=== PATIENT | female | born 1945 | race Caucasian/White ===

== ENCOUNTER → 2020-02-19 13:40 | Outpatient (CLI) | payer MEDICARE, SELFPAY ==
--- NOTE | 2020-02-19 14:00 | DI.CT.S_ITS ---
PROCEDURE: CT KIDNEY URETER BLADDER (KUB) INDICATIONS: Hematuria, unspecified TECHNIQUE: Noncontrast 5 mm thick sections acquired from the diaphragms to the symphysis. 5 mm thick coronal and sagittal reformats were then performed. For radiation dose reduction, the following was used: automated exposure control, adjustment of mA and/or kV according to patient size. COMPARISON: None. FINDINGS: Image quality: Excellent. Lung bases: There is a 4 mm left lower lobe nodule with a more posterior 4 mm nodule identified on series 3 image 8. No priors are available for comparison. Urinary system: Both kidneys are normal in size. No kidney stones. No hydronephrosis or perinephric fat stranding. Both ureters appear non-dilated throughout their expected courses. Bladder wall thickness is normal; no calcified bladder stones. Other solid organs: Liver is normal in size. Gallbladder demonstrates multiple stones without wall thickening. Pancreas is normal in contours. Spleen is normal in size. No adrenal nodules. Peritoneum and bowel: Unenhanced bowel loops demonstrate normal wall thickness and caliber. No free fluid or air. Colonic diverticula are present without inflammatory change. Nodes and vessels: No retroperitoneal or mesenteric adenopathy by size criteria. Aorta and inferior vena cava are normal in caliber. Abdominal wall: No ventral hernias. Pelvis: No free pelvic fluid. No inguinal hernias or adenopathy. Bones: No suspicious bony lesions. No vertebral body compression fractures. IMPRESSION: 1. No nephro or ureterolithiasis. If concern persists for hematuria, CT IVP is recommended for further evaluation. 2. Innumerable gallstones without wall thickening consistent with cholelithiasis. 3. 4 mm left lower lobe nodules, nonspecific without priors for comparison. Recommend interval followup as below. Fleischner Society criteria for SOLID lung nodule followup. Nodule size (mm)Low-risk patientHigh-risk patient<6 (single or multiple)No routine followup.Optional CT at 12 months. 6-8 (single or multiple)CT at 6-12 months, then optional CT at 18-24 mo.CT at 6-12 months, then CT at 18-24 months. >8 (single)CT, PET-CT, or biopsy at 3 months. Same as for low-risk pts. >8 (multiple)CT at 3-6 months, then optional CT at 18-24 mo.CT at 3-6 months, then CT at 18-24 months. Recommendations do not apply to lung cancer screening, patients with immunosuppression, or patients with known primary cancer. Dictated by: Jailyn Villeda M.D. on 02/19/2020 at 16:41 Approved by: Jailyn Villeda M.D. on 02/19/2020 at 16:44
== END ==
PROVIDERS: Referring Provider Physician Assistant Medical; Visit Provider Physician Assistant Medical
DX: R31.9 Hematuria, unspecified (principal); R91.8 Other nonspecific abnormal finding of lung field; K80.20 Calculus of gallbladder without cholecystitis without obstruction; K57.90 Diverticulosis of intestine, part unspecified, without perforation or abscess without bleeding
CPT/HCPCS: 74176

== ENCOUNTER 2022-09-14 07:51 | Day surgery (SDC) | payer MEDICARE, SELFPAY ==
--- NOTE | 2022-09-14 | PATH_ITS ---
[facility] Accession Number: [id number] . 01 Material submitted: . PART A: colon - RANDOM COLON BIOPSIES PART B: colon - TRANSVERSE COLON POLYP . 01 Diagnosis: A. Random Colon, Biopsies: Colonic mucosa with no diagnostic abnormality. Negative for active, chronic, and microscopic colitis. Negative for dysplasia and malignancy. . B. Transverse Colon Polyp, Biopsy: Colonic mucosa with focal mucosal hyperplasia. Negative for dysplasia or malignancy. MRV 09/16/2022 1538 Local . 01 Electronically signed: . Holland Nash MD, PhD, Pathologist NPI- [id number] . 01 Gross description: . Part A: RANDOM COLON BIOPSIES: Received in formalin are 3 fragment(s) of mederos, soft tissue measuring 0.1 x 0.1 x 0.1 cm to 0.2 x 0.2 x 0.2 cm submitted entirely in 1 cassette(s) Part B: TRANSVERSE COLON POLYP: Received in formalin is 1 fragment(s) of mederos, soft tissue measuring 0.3 x 0.2 x 0.2 cm submitted entirely in 1 cassette(s) /MARIBELL 09/15/2022 0101 Local . 01 Pathologist provided ICD-10: R19.7, K63.5 . 01 CPT . 115151, 136694 Specimen Comment: A courtesy copy of this report has been sent to [phone] Performed at: 01 [facility] [address] [place] [address], [place], [place] [id number] MD Sabas Marcano MD Phone: [phone]
[2022-09-14] MEDS: LACTATED RINGERS 1,000 ML 42 ML IV (08:05)
[2022-09-14 08:21] VITALS: BP 133/86; PULSE 67; RESP 16; TEMP 36.3; O2SAT 98; BMI 28.1
[2022-09-14 08:37] LABS: COVID19 -Nasal RAPID Negative (Negative)
--- NOTE | 2022-09-14 09:01 | PM.HP.1 ---
History of Present Illness History of Present Illness Date Patient Seen: 09/14/22 Time Patient Seen: 09:01 Chief complaint: Colonoscopy Narrative: I reviewed the recent office note by Dr. Michel. No changes. Patient History Family & Social History Social History: household members significant other Tobacco & Substance use: Smoking Status Former smoker alcohol intake current alcohol intake frequency holiday/special occasion Substance Use Type marijuana Meds Home Medications and Allergies Home Medications Medication Instructions Recorded Confirmed Type amlodipine 2.5 mg tablet 2.5 mg PO DAILY 09/14/22 09/14/22 History ibuprofen 200 mg tablet 200 mg PO DAILY 09/14/22 09/14/22 History losartan 25 mg tablet 25 mg PO DAILY 09/14/22 09/14/22 History Allergies Allergy/AdvReac Type Severity Reaction Status Date / Time Sulfa (Sulfonamide AdvReac Mild Vomiting Verified 09/14/22 08:14 Antibiotics) Review of Systems Review of Systems ROS: Yes All systems reviewed with the patient and are negative except as otherwise documented Exam Vital Signs (past 8 hours): - 09/14/22 08:21 Temperature 97.3 F L Pulse Rate 67 Respiratory Rate 16 Blood Pressure 133/86 Pulse Oximetry 98 Oxygen Delivery Method Room Air Oxygen Delivery Method Room Air Const General: cooperative HENMT Head: normal to inspection Eyes General: appearance normal, both eyes and all related structures Neck Neck: normal visual inspection Chest Chest: normal inspection of the chest Resp Effort & Inspection: normal respiratory effort Cardio Rate: regular rate GI Inspection: normal to inspection Skin General: no rashes or lesions noted Neuro General: patient alert and patient awake Extrem General: normal to inspection and no pedal edema Psych Appearance: grossly normal Objective Labs Labs: Laboratory Results - last 24 hr 09/14/22 08:01 SARS-CoV-2 (PCR) Negative Assessment & Plan Assessment & Plan narrative: 76-year-old female with chronic diarrhea. She has a remote history of some form of colitis many years ago. Sounds like it may have been ischemic. Updated colonoscopy is pursued today. Time Spent With Patient Critical Care time: I spent a total of [] minutes of critical care time on this patient's care today; this time is exclusive of procedural time.
--- NOTE | 2022-09-14 09:03 | PM.PREOP ---
Pre-operative Note COVID-19 COVID-19 status: Negative Result date/Date tested (Pos, Neg/Pending): 09/14/22 Criteria for continued procedure: Possibility delay results in more complex future surgery or treatment Interval Note History & Physical reviewed/Exam performed by Physician: Yes Changes to H&P: No ASA Class (for procedural sedation): II
--- NOTE | 2022-09-14 09:37 | P.OP.COLON_ITS ---
Operative Date/Time/Diagnoses Date of procedure: 09/14/22 Time of procedure: 09:37 Pre-op diagnosis: Chronic diarrhea Post-op diagnosis: same Procedure & Clinicians Study performed: Colonoscopy with cold forceps polypectomy and biopsies Same procedure as scheduled: Yes Indications: Diarrhea Surgeon: Thomas Tyson Procedure Notes SCOAP/Timeout: Done Procedure in detail: After the risks and benefits were explained, written and verbal informed consent was obtained. The patient was brought into the procedure room and placed into the left lateral decubitus position. Please see nurse electrical accessories i assembler notes for sedation details. Digital rectal examination was accomplished. The scope was introduced into the patient and advanced under direct visualization to the cecum as identified by the appendiceal orifice and ileocecal valve. The scope was slowly withdrawn to carefully examine the mucosa for any defects or lesions. Comprehensive imaging was accomplished throughout the rectum including the dentate line. The colon was decompressed, the scope was then removed from the patient who tolerated the procedure well. Pediatric colonoscope Bowel prep adequate Scope withdrawal time: 13 minutes Sedation minutes: 28 Complications: none Impression: The patient had evidence of a prolapsed mildly inflamed internal hemorrhoid. This was palpable on ROSAS. This was rated at grade 3 as it was fairly easily reduced with the digital exam. The patient had a very tortuous colon. Diverticulosis was encountered in the sigmoid region. There was a diminutive 4- 5 mm polyp in the transverse removed with cold forceps. The ileocecal valve demonstrated evaginated ileal mucosa but was otherwise within normal limits. The terminal ileum was interrogated and appeared normal. I did not identify any evidence of macroscopic colitis. Random colon biopsies were taken for exclusion of microscopic colitis. Endoscopic diagnosis 1. Grade 3 internal hemorrhoids 2. Diverticulosis 3. Twisty colon 4. Transverse colon polyp Post-procedure Plan for aftercare: 1. Await histopathology 2. Fiber based bowel regimen is recommended for now. Disposition: PACU
[2022-09-14 09:41] VITALS: BP 128/74; PULSE 62; RESP 19; O2SAT 98
[2022-09-14 09:46] VITALS: BP 122/65; PULSE 61; RESP 18; TEMP 36.9
[2022-09-14 09:53] VITALS: BP 136/66; PULSE 66; RESP 15; O2SAT 97
[2022-09-14 09:55] VITALS: BP 129/73; PULSE 73; RESP 15; TEMP 36.2; O2SAT 99
[2022-09-14 10:02] VITALS: BP 150/81; PULSE 59; RESP 18; TEMP 36.8; O2SAT 99
== END 2022-09-14 10:18 | disposition home or self-care (01) ==
PROVIDERS: PCP Internal Medicine; Referring Provider Internal Medicine Gastroenterology; Visit Provider Internal Medicine Gastroenterology
PROC: 0DJD8ZZ Inspection of Lower Intestinal Tract, Via Natural or Artificial Opening Endoscopic (ICD-10-PCS; CPT 45378; principal; 2022-09-14 09:00)
DX: K52.9 Noninfective gastroenteritis and colitis, unspecified (principal); J44.9 Chronic obstructive pulmonary disease, unspecified; Z20.822 Contact with and (suspected) exposure to COVID-19; K57.30 Diverticulosis of large intestine without perforation or abscess without bleeding; K64.2 Third degree hemorrhoids; K63.5 Polyp of colon
CPT/HCPCS: 45380; 87635; J2704